=== PATIENT | male | born 1990 | race Caucasian/White ===

== ENCOUNTER 2022-08-15 10:52 | Emergency (ER) | payer OTHER ==
[2022-08-15 10:56] VITALS: RESP 18; TEMP 98; BMI 22.8
[2022-08-15] MEDS ORDERED: RABIES VACCINE (PCEC)/PF 2.5 UNIT/VIAL IM ONE (11:05)
[2022-08-15 11:14] VITALS: BP 111/65; PULSE 69
== END 2022-08-15 11:30 | disposition home or self-care (01) ==
LOC: FER 10:52
PROC: 3E0234Z Introduction of Serum, Toxoid and Vaccine into Muscle, Percutaneous Approach (ICD-10-PCS; principal; 2022-08-15)
DX: Z23 Encounter for immunization (principal)
CPT/HCPCS: 90675; 99281-25

== ENCOUNTER 2022-08-22 10:05 | Emergency (ER) | payer OTHER ==
[2022-08-22] MEDS ORDERED: RABIES VACCINE (PCEC)/PF 2.5 UNIT/VIAL IM ONE ×2 (10:22→10:36)
[2022-08-22 10:27] VITALS: BP 115/72; PULSE 74; RESP 20; TEMP 97.9; BMI 23.6
== END 2022-08-22 11:11 | disposition home or self-care (01) ==
LOC: FER 10:05
PROC: 3E0234Z Introduction of Serum, Toxoid and Vaccine into Muscle, Percutaneous Approach (ICD-10-PCS; principal; 2022-08-22)
DX: Z29.14 Encounter for prophylactic rabies immune globulin (principal)
CPT/HCPCS: 90675; 99284-25